=== PATIENT | male | born 1975 | race Caucasian/White ===

== ENCOUNTER 2018-05-18 09:38 | Emergency (ER) | payer BC ==
[2018-05-18 10:09] VITALS: BP 132/80
[2018-05-18] MEDS ORDERED: OXYMETAZOLINE NASAL SPRAY NAS STA (11:53)
[2018-05-18] MEDS ORDERED: LIDOCAINE TOPICAL 4% 50 ML BOTTLE MM STA (11:53)
[2018-05-18] MEDS ORDERED: PSEUDOEPHEDRINE 30 MG TABLET PO STA (11:53)
--- NOTE | 2018-05-18 11:56 | ED Physician Documentation ---
History of Present Illness - Stated complaint Stated Complaint: R SIDE EAR PX-THROAT RED - Additonal information Additional information: hx from pt 43 male sharp right ear pain erythema to right posterior pharynx some recent dental work no congestion cough Review of Systems Constitutional: denies: Fever, Chills Ears: reports: Ear pain Nose: denies: Congestion Throat: reports: Sore throat Respiratory: denies: Cough PD PAST MEDICAL HISTORY - Present Medications Home Medications: Ambulatory Orders Medication Instructions Recorded Confirmed Amoxicillin 500 mg PO Q8HR #30 capsule 05/18/18 Oxymetazoline HCl [Afrin] 2 spray NS BID PRN #1 bottle 05/18/18 Pseudoephedrine [Sudafed] 30 mg PO Q8H PRN #20 tablet 05/18/18 - Allergies Allergies/Adverse Reactions: Allergies Allergy/AdvReac Type Severity Reaction Status Date / Time No Known Drug Allergies Allergy Verified 05/18/18 10:09 PD ED PE NORMAL - Vitals Vital signs reviewed: Yes - HEENT HEENT: No: Ears normal (R TM tautly retracted, no erythema or purulent fluid), Pharynx benign (erythema posteriorpillar s exudate, dentition benign) - Neck Neck: Supple, no meningeal sign - Cardiac Cardiac: RRR - Respiratory Respiratory: No respiratory distress, Clear bilaterally - Neuro Neuro: Alert and oriented X 3 Results - Vitals Vitals: Vital Signs - 24 hr 05/18/18 10:03 Temperature 36 C L Heart Rate 84 Respiratory 16 Rate Blood Pressure 132/80 H O2 Saturation 99 Oxygen O2 Source Room air PD MEDICAL DECISION MAKING - ED course ED course: rapid strep not resulted 90 min later will tx and dc Departure - Departure Disposition: Home, Self Care Clinical Impression: Pharyngitis Qualifiers: Pharyngitis/tonsillitis etiology: unspecified etiology Qualified Code(s): J02.9 - Acute pharyngitis, unspecified Condition: Good Instructions: ED Strep Pharyngitis Poss Prescriptions: Amoxicillin 500 mg PO Q8HR #30 capsule Oxymetazoline HCl [Afrin] 2 spray NS BID PRN #1 bottle PRN Reason: nasal sinus ear congestion Pseudoephedrine [Sudafed] 30 mg PO Q8H PRN #20 tablet PRN Reason: congestion Comments: The rapid strep test is not rapid today You have redness to the posterior pharynx, inflamed lymph nodes and a clogged Eustachian tube So I have prescribed antibiotics in addition to decongestants
== END 2018-05-18 13:30 | disposition home or self-care (01) ==
LOC: ED 09:38
DX: J02.0 Streptococcal pharyngitis (principal)
CPT/HCPCS: 87430; 99283; A9270